=== PATIENT | female | born 1990 | race African-American/Black ===

== ENCOUNTER 2021-09-27 15:50 | Emergency (ER) | payer SELFPAY ==
[~2021-09-27] VITALS: Ht 175.3 cm; Wt 68.0 kg
[2021-09-27 17:04] VITALS: BP 118/85
[2021-09-27] MEDS ORDERED: ONDANSETRON ODT 4 MG TAB.RAPDIS. PO ONE (17:15)
[2021-09-27] MEDS ORDERED: ACETAMINOPHEN 500 MG TABLET PO ONE (17:15)
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
[2021-09-27] MEDS ORDERED: CYCL10TA19 PO (19:17)
[2021-09-27] MEDS ORDERED: HYDR-2761 PO ×2 (19:17→19:22)
[2021-09-27] MEDS ORDERED: ONDA4TAB12 PO (19:17)
== END 2021-09-27 20:14 | disposition home or self-care (01) ==
LOC: ER 15:50
DX: S02.2XXA Fracture of nasal bones, initial encounter for closed fracture (principal); S02.85XA Fracture of orbit, unspecified, initial encounter for closed fracture; S13.9XXA Sprain of joints and ligaments of unspecified parts of neck, initial encounter; S20.212A Contusion of left front wall of thorax, initial encounter; S00.83XA Contusion of other part of head, initial encounter; M54.59 Other low back pain; J45.909 Unspecified asthma, uncomplicated; Y08.89XA Assault by other specified means, initial encounter; Y93.89 Activity, other specified; Y92.89 Other specified places as the place of occurrence of the external cause; Y99.8 Other external cause status
CPT/HCPCS: 70450; 70480; 71250; 72125; 74176; 81025; 99284; 99285